=== PATIENT | female | born 1965 | race Caucasian/White ===

== ENCOUNTER → 2020-05-03 | Outpatient (CLI) | payer OTHER ==
[2020-05-03 15:18] VITALS: BP 130/86; PULSE 75; RESP 16; TEMP 98.2
--- NOTE | 2020-05-03 16:03 | P.HPOB ---
History of Present Illness H&P Date: 05/03/20 Chief Complaint: The patient is here for her routine gynecologic exam and ma mmogram. This is a 55-year-old with an LMP of 2012. She is here to establish with this office. She is status post endometrial ablation in 2012 and has been amenorrheic since then. She believes she went through a menopausal change in 2013 because of hot flashes. She has used Effexor for hot flashes. She is without gynecologic complaints and denies any postmenopausal bleeding. Review of Systems The patient has gained 30 pounds over the last year. She attributes this to decreased activity and increased distress during the covid pandemic. She denies respiratory, cardiac, or G.I. problems. Past Medical History Additional Past Medical History / Comment(s): Osteopenia. 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 History of Any Multi-Drug Resistant Organisms: None Reported Past Surgical History: Tonsillectomy, Uterine Ablation Additional Past Surgical History / Comment(s): Endometrial ablation 2012. Past Psychological History: Depression Additional Psychological History / Comment(s): Situational depression in the past. Smoking Status: Former smoker Past Alcohol Use History: Occasional (10 per week) Additional Past Alcohol Use History / Comment(s): Quit smoking around age 20. Past Drug Use History: None Reported Additional History: She has been since 1988. She is currently not working outside of the home. [place] - Past Family History Mother Family Medical History: Cancer Additional Family Medical History / Comment(s): Breast cancer at age 49 and at age 65. Grandparents had diabetes. Father Family Medical History: No Reported History Daughter(s) Family Medical History: Diabetes Mellitus Medications and Allergies Home Medications Medication Instructions Recorded Confirmed Type Venlafaxine HCl ER [Effexor XR] 75 mg PO DAILY 05/03/20 05/03/20 History Allergies Allergy/AdvReac Type Severity Reaction Status Date / Time No Known Allergies Allergy Unverified 05/03/20 15:18 Exam Vital Signs Temp Pulse Resp BP Pulse Ox 05/03/20 15:10 98.2 F 75 16 130/86 98 Intake and Output 05/03/20 05/03/20 05/03/20 06:59 14:59 22:59 Other: Weight 84.368 kg Height 5 feet 2 inches, weight 186 pounds, BMI 34.0. This is a well-developed well-nourished white female who is alert and oriented times 3 in no acute distress. HEENT: Within normal limits. NECK: Supple without mass or thyromegaly. CHEST AND LUNGS: Clear to auscultation. HEART: Regular rate and rhythm. BREASTS: Are without mass or discharge. AXILLARY EXAM: Negative for adenopathy. BACK: Negative for CVA tenderness. ABDOMEN: Soft, nontender, without palpable masses. PELVIC EXAM: Normal external genitalia with minimal atrophy. Cervix and vagina appear normal with minimal atrophy. There is no unusual discharge. There is no evidence of prolapse. The uterus is midposition, nongravid size and nontender. There are no palpable adnexal masses or tenderness. RECTAL EXAM: Rectovaginal exam is negative for mass or tenderness and is negative for occult blood. EXTREMITIES: Nontender. IMPRESSION: 1. 55-year-old menopausal female with normal gynecologic exam. 2. History of osteopenia. Bone density testing was [place] 2[place]3 [place] of state. PLAN: 1. Pap smear was performed. 2. Self breast awareness was discussed with the patient. 3. Screening mammogram will be done today. 4. Osteoporosis prevention was discussed. I have stressed the importance of adequate calcium, vitamin D and regular exercise. Recommended amounts of calcium and vitamin D were also discussed. She was once told she had some bone weakness in the jaw area and this led to her getting a bone density test which showed osteopenia. We will plan on repeating bone density testing in 1 year. 5. Weight control was discussed. I have stressed the importance of good nutrition, adequate fiber and regular exercise. 6. She was advised to return in one year for her annual well woman exam.
--- NOTE | 2020-05-04 11:43 | MM ---
Reason for exam: screening (asymptomatic). Last mammogram was performed 1 year and 4 months ago. History: Patient is postmenopausal. Family history of breast cancer in mother at age 49. Benign excisional biopsy of the right breast. Physical Findings: A clinical breast exam by your physician is recommended on an annual basis and results should be correlated with mammographic findings. MG 3D Screening Mammo W/Cad Bilateral CC and MLO view(s) were taken. Prior study comparison: December 18, 2018, mammogram, performed at [place]. December 12, 2017, mammogram, performed at [place]. There are scattered fibroglandular densities. No significant changes when compared with prior studies. ASSESSMENT: Benign, BI-RAD 2 RECOMMENDATION: Routine screening mammogram of both breasts in 1 year.
== END | disposition home or self-care (01) ==
LOC: WWCWWP 14:46
PROVIDERS: ATTEND Obstetrics & Gynecology
DX: Z12.31 Encounter for screening mammogram for malignant neoplasm of breast (principal)
CPT/HCPCS: 77063; 77067

== ENCOUNTER → 2021-05-02 | Outpatient (CLI) | payer OTHER ==
[2021-05-02 14:14] VITALS: BP 144/85; PULSE 88; RESP 18; TEMP 98.4
--- NOTE | 2021-05-02 14:49 | P.HPOB ---
History of Present Illness H&P Date: 05/02/21 Chief Complaint: The patient is here for her routine gynecologic exam. This is a 56-year-old with an LMP of 2012. The patient is without gynecologic complaints and denies any postmenopausal bleeding. Review of Systems The patient has gained 3 pounds over the last year. She denies respiratory, cardiac, or G.I. problems. Past Medical History Additional Past Medical History / Comment(s): Osteopenia. 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 History of Any Multi-Drug Resistant Organisms: None Reported Past Surgical History: Tonsillectomy, Uterine Ablation Additional Past Surgical History / Comment(s): Endometrial ablation 2012. Colonoscopy 2016(next after 10yr). Past Psychological History: Depression Additional Psychological History / Comment(s): Situational depression in the past. Smoking Status: Former smoker Past Alcohol Use History: Occasional (About 10 per week.) Additional Past Alcohol Use History / Comment(s): Quit smoking around age 20. Past Drug Use History: None Reported Additional History: She has been since 1988. She is currently not working outside the home. - Past Family History Mother Family Medical History: Cancer Additional Family Medical History / Comment(s): Breast cancer at age 49 and at age 65. Grandparents had diabetes. Father Family Medical History: No Reported History Daughter(s) Family Medical History: Diabetes Mellitus Medications and Allergies Home Medications Medication Instructions Recorded Confirmed Type Venlafaxine HCl ER [Effexor XR] 75 mg PO DAILY 05/03/20 05/02/21 History Amitriptyline HCl [Elavil] 25 mg PO HS 05/02/21 05/02/21 History Calcium Carbonate [Calcium] 1 tab PO DAILY 05/02/21 05/02/21 History Magnesium 200 mg PO DAILY 05/02/21 05/02/21 History Multivitamin/Iron/Folic Acid 1 each PO DAILY 05/02/21 05/02/21 History [Centrum Women Tablet] Potassium Chloride [Potassium 8 meq PO DAILY 05/02/21 05/02/21 History Chloride ER] Vitamin B Complex 1 each PO DAILY 05/02/21 05/02/21 History Allergies Allergy/AdvReac Type Severity Reaction Status Date / Time No Known Allergies Allergy Unverified 05/02/21 14:05 Exam Vital Signs Temp Pulse Resp BP Pulse Ox 05/02/21 14:08 98.4 F 88 18 144/85 97 Intake and Output 05/01/21 05/02/21 05/02/21 22:59 06:59 14:59 Other: Weight 85.729 kg Height 5 feet 1-1/2 inches, weight 189 pounds, BMI 35.1. This is a well-developed well-nourished white female who is alert and oriented times 3 in no acute distress. HEENT: Within normal limits. NECK: Supple without mass or thyromegaly. CHEST AND LUNGS: Clear to auscultation. HEART: Regular rate and rhythm. BREASTS: Are without mass or discharge. AXILLARY EXAM: Negative for adenopathy. BACK: Negative for CVA tenderness. ABDOMEN: Soft, nontender, without palpable masses. PELVIC EXAM: Normal external genitalia with mild atrophy. Cervix and vagina appear normal with minimal atrophy. There is no unusual discharge. There is no evidence of prolapse. The uterus is midposition, nongravid size and nontender. There are no palpable adnexal masses or tenderness. RECTAL EXAM: Rectovaginal exam is negative for mass or tenderness and is negative for occult blood. EXTREMITIES: Nontender. IMPRESSION: 1. 56-year-old menopausal female with normal gynecologic exam. 2. This Pap smear on 05/03/2020 showed ASCUS with negative high-risk HPV testing. 3. History of osteopenia by bone density testing done out of state about 3-4 y ears ago. PLAN: 1. Pap smear was deferred. Pap smear cotest will be performed in approximately 1-2 years. 2. Self breast awareness was discussed with the patient. We have also discussed symptoms associated with inflammatory breast cancer. 3. Screening mammogram is due and the order slip was given to the patient for this. She is scheduled for her mammogram on 05/19/2021. 4. Osteoporosis prevention was discussed. I have stressed the importance of adequate calcium, vitamin D and regular exercise. Recommended amounts of calcium and vitamin D were also discussed. She is scheduled for bone density test on 05/19/2021. The order slip for this was given to the patient. 5. She has received the IPTEGO and Oonair vaccination. 6. She was advised to return in one year for her annual well woman exam.
== END ==
LOC: WWCWWP 13:57
PROVIDERS: ATTEND Obstetrics & Gynecology
DX: Z01.419 Encounter for gynecological examination (general) (routine) without abnormal findings (principal); Z87.39 Personal history of other diseases of the musculoskeletal system and connective tissue; Z87.891 Personal history of nicotine dependence; F32.9 Major depressive disorder, single episode, unspecified

== ENCOUNTER → 2021-05-19 | Outpatient (CLI) | payer OTHER ==
--- NOTE | 2021-05-19 13:30 | BD ---
EXAMINATION TYPE: Axial Bone Density DATE OF EXAM: 05/19/2021 COMPARISON: NONE CLINICAL HISTORY: Height: 60.7 IN Weight: 185 LBS FRAX RISK QUESTIONS: History of Fracture in Adulthood: RT ANKLE FX AGE 51 RISK FACTORS HISTORY OF: Family History of Osteoporosis: YES GRANDMOTHER Active: YES Diet low in dairy products/other sources of calcium: YES Postmenopausal woman: AGE 48 MEDICATIONS: Additional Medications: CALCIUM, VIT D, VENIFLAXIN, AMYTRIPTYLINE, EXAM MEASUREMENTS: Bone mineral densitometry was performed using the [employer] System. Bone mineral density as measured about the Lumbar spine is: ----- L1-L4(G/cm2): 1.226 T Score Values are as follows: ----- L2: 0.8 ----- L3: 1.4 ----- L4: -0.3 ----- L1-L4: 0.4 Bone mineral density BASELINE Bone mineral density about the R hip (g/cm2): 0.844 Bone mineral density about the L hip (g/cm2): 0.871 T Score values are as follows: -----R Neck: -1.4 -----L Neck: -1.2 -----R Total: -0.7 -----L Total: -0.5 Bone mineral density BASELINE IMPRESSION: no evidence for osteoporosis or osteopenia NOTE: T-SCORE=SD OF THE YOUNG ADULT MEAN.
--- NOTE | 2021-05-22 11:55 | MM ---
Reason for exam: screening (asymptomatic). Last mammogram was performed 1 year and 1 month ago. History: Patient is postmenopausal. Family history of breast cancer in mother at age 49. Benign excisional biopsy of the right breast. Physical Findings: A clinical breast exam by your physician is recommended on an annual basis and results should be correlated with mammographic findings. MG 3D Screening Mammo W/Cad Bilateral CC and MLO view(s) were taken. Prior study comparison: May 03, 2020, bilateral MG 3d screening mammo w/cad. December 18, 2018, mammogram, performed at [place]. The breast tissue is heterogeneously dense. This may lower the sensitivity of mammography. There is no discrete abnormality. No significant changes when compared with prior studies. ASSESSMENT: Negative, BI-RAD 1 RECOMMENDATION: Routine screening mammogram of both breasts in 1 year.
--- NOTE | 2021-05-24 11:41 | P.PN ---
Progress Note - Text Progress Note Date: 05/24/21 OUTPATIENT FOLLOW-UP NOTE TEST(S)/RESULTS: Bone density test and mammogram done on 05/19/2021 were both read as normal. The bone density test shows the bilateral femur necks to be just outside of the normal range in the osteopenia range. This will be considered focal osteopenia. METHOD OF NOTIFICATION: The patient was notified by phone. PATIENT COMMENTS: The patient had a bone density test done [id number] a few years ago and apparently showed osteopenia per the patient. DIAGNOSIS: Focal osteopenia and benign mammogram. DISCUSSION: We have discussed how the Pap smear was not done this year. Last year which showed ASCUS with negative high-risk HPV testing. This will be repeated in 1-2 years from now. I have stressed the importance of getting adequate calcium, vitamin D, and regular exercise. PLAN: She was advised to return in one year for her annual well woman exam. We will plan on repeating the bone density test in 3 years.
== END | disposition home or self-care (01) ==
LOC: RADMAMWWP 11:22
PROVIDERS: ATTEND Obstetrics & Gynecology
DX: Z12.31 Encounter for screening mammogram for malignant neoplasm of breast (principal); Z78.0 Asymptomatic menopausal state
CPT/HCPCS: 77063; 77067; 77080

== ENCOUNTER → 2022-06-19 | Outpatient (CLI) | payer OTHER ==
[2022-06-19 13:00] VITALS: BP 151/92; PULSE 73; RESP 16; TEMP 98.7
--- NOTE | 2022-06-19 13:27 | P.HPOB ---
History of Present Illness H&P Date: 06/19/22 Chief Complaint: The patient is here for her routine gynecologic exam and ma mmogram. This is a 57-year-old with an LMP of 2012. The patient is without gynecologic complaints and denies any postmenopausal bleeding. Her last Pap smear done on 05/03/2020 showed ASCUS with negative high-risk HPV testing. Review of Systems The patient has lost 8 pounds over the last year. The weight loss has been intentional and she would like to lose more weight. She denies respiratory, cardiac, or G.I. problems. 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 History of Any Multi-Drug Resistant Organisms: None Reported Past Surgical History: Tonsillectomy, Uterine Ablation Additional Past Surgical History / Comment(s): Endometrial ablation 2012. Colonoscopy 2016(next after 10yr). Past Psychological History: Depression Additional Psychological History / Comment(s): Situational depression in the past. Smoking Status: Former smoker Past Alcohol Use History: Daily (About 2 glasses of wine per day.) Additional Past Alcohol Use History / Comment(s): Quit smoking around age 20. Past Drug Use History: None Reported Additional Drug Use History / Comment(s): She does use THC gummy is to help her sleep. Additional History: She has been since 1988. She sells real estate. - Past Family History Mother Family Medical History: Cancer Additional Family Medical History / Comment(s): Breast cancer at age 49 and at age 65. Grandparents had diabetes. Father Family Medical History: No Reported History Daughter(s) Family Medical History: Diabetes Mellitus Medications and Allergies Home Medications Medication Instructions Recorded Confirmed Type Venlafaxine HCl ER [Effexor XR] 75 mg PO DAILY 05/03/20 05/02/21 History Amitriptyline HCl [Elavil] 25 mg PO HS 05/02/21 05/02/21 History Calcium Carbonate [Calcium] 1 tab PO DAILY 05/02/21 05/02/21 History Magnesium 200 mg PO DAILY 05/02/21 05/02/21 History Multivitamin/Iron/Folic Acid 1 each PO DAILY 05/02/21 05/02/21 History [Centrum Women Tablet] Potassium Chloride [Potassium 8 meq PO DAILY 05/02/21 05/02/21 History Chloride ER] Vitamin B Complex 1 each PO DAILY 05/02/21 05/02/21 History Allergies Allergy/AdvReac Type Severity Reaction Status Date / Time No Known Allergies Allergy Unverified 05/02/21 14:05 Exam Vital Signs Temp Pulse Resp BP Pulse Ox 06/19/22 12:58 98.7 F 73 16 151/92 99 Intake and Output 06/18/22 06/19/22 06/19/22 22:59 06:59 14:59 Other: Weight 82.1 kg Height 5 foot 1.5 inch, weight 181 pounds, BMI 34.2. This is a well-developed well-nourished white female who is alert and oriented times 3 in no acute distress. HEENT: Within normal limits. NECK: Supple without mass or thyromegaly. CHEST AND LUNGS: Clear to auscultation. HEART: Regular rate and rhythm. BREASTS: Are without mass or discharge. AXILLARY EXAM: Negative for adenopathy. BACK: Negative for CVA tenderness. ABDOMEN: Soft, nontender, without palpable masses. PELVIC EXAM: Normal external genitalia with mild atrophy. Cervix and vagina appear normal with mild atrophy. There is no unusual discharge. There is no evidence of prolapse. The uterus is midposition, nongravid size and nontender. There are no palpable adnexal masses or tenderness. RECTAL EXAM: Rectovaginal exam is negative for mass or tenderness and is negative for occult blood. EXTREMITIES: Nontender. IMPRESSION: 1. 57-year-old menopausal female with normal gynecologic exam. 2. Previous Pap smear showed ASCUS with negative high-risk HPV testing on 05/03/2020. 3. History of focal osteopenia on 05/19/2021. PLAN: 1. Pap smear cotest was performed. 2. Self breast awareness was discussed with the patient. We have also discussed symptoms associated with inflammatory breast cancer. 3. Screening mammogram will be done today. 4. Osteoporosis prevention was discussed. I have stressed the importance of adequate calcium, vitamin D and regular exercise. Recommended amounts of calcium and vitamin D were also discussed. We will plan on repeating bone density testing in approximately 2 years. 5. She has received Covid vaccinations including two boosters. 6. She was advised to return in one year for her annual well woman exam.
--- NOTE | 2022-06-20 08:57 | MM ---
Reason for Exam: Screening (asymptomatic). Last mammogram was performed 1 year(s) and 1 month(s) ago. Patient History: Menarche at age 12. First Full-Term at age 21. Postmenopausal. Patient has history of breast feeding. Benign Excisional Biopsy on the right side. Mother had breast cancer, age 49. Risk Values: Neda 5 year model risk: 3.0%. NCI Lifetime model risk: 16.6%. Prior Study Comparison: 12/12/2017 Screening Mammogram, [place]. 12/18/2018 Screening Mammogram, [place]. 05/03/2020 Bilateral Screening Mammogram, [facility]. 05/19/2021 Bilateral Screening Mammogram, [facility]. Tissue Density: There are scattered fibroglandular densities. Findings: Analyzed By CAD. Left breast biopsy clip. There is no suspicious group of microcalcifications or new suspicious mass in either breast. Overall Assessment: Negative, BI-RAD 1 Management: Screening Mammogram of both breasts in 1 year. A clinical breast exam by your physician is recommended on an annual basis and results should be correlated with mammographic findings. [facility] will attempt to contact patient to return for supplemental views and ultrasound if indicated. Electronically signed and approved by: Claudy Galicia DO
== END ==
LOC: WWCWWP 12:47
PROVIDERS: ATTEND Obstetrics & Gynecology
DX: Z01.419 Encounter for gynecological examination (general) (routine) without abnormal findings (principal); Z12.31 Encounter for screening mammogram for malignant neoplasm of breast; Z78.0 Asymptomatic menopausal state; Z87.39 Personal history of other diseases of the musculoskeletal system and connective tissue
CPT/HCPCS: 77063; 77067

== ENCOUNTER → 2023-05-29 | Outpatient (CLI) | payer OTHER ==
--- NOTE | 2023-05-29 08:39 | US ---
EXAMINATION TYPE: US pelvis complete transvag DATE OF EXAM: 05/29/2023 COMPARISON: NONE CLINICAL INDICATION: Female, 58 years old with history of D25.9 LEIOMYOMA OF UTERUS; pain TECHNIQUE: Transvaginal (TV) and Transabdominal (TA) . EXAM MEASUREMENTS: Uterus: 8.2 x 4.0 x 5.0 cm Endometrial Stripe: not well visualized 1. Uterus: Retroverted Heterogenous area left 3.1 x 2.4 x 2.9 cm 2. Endometrium: Not well visualized 3. Right Ovary: Obscured by overlying bowel gas 4. Left Ovary: Obscured by overlying bowel gas 5. Bilateral Adnexa: wnl 6. Posterior cul-de-sac: wnl IMPRESSION: 1. No evidence for acute process. 2. Fibroid uterus. 3. Poor visualization of the endometrium.
== END | disposition home or self-care (01) ==
LOC: RADUSWWP 07:06
PROVIDERS: ATTEND Family Medicine
DX: D25.9 Leiomyoma of uterus, unspecified (principal)
CPT/HCPCS: 76830; 76856

== ENCOUNTER → 2023-08-14 | Day surgery (SDC) | payer OTHER ==
[2023-08-12 10:01] VITALS: BMI 31.1
[~2023-08-14] MED LIST: LACTATED RINGERS 1,000 ML IV SCH; LIDOCAINE 1% (10MG/ML) FOR IV START INTRADERMA ONE; PROPOFOL 10 MG/ML 20 ML VIAL IV ONE
[2023-08-14 11:23] VITALS: TEMP 97.9
--- NOTE | 2023-08-14 12:18 | P.PCN ---
Date of Procedure: 08/14/23 Procedure(s) Performed: BRIEF HISTORY: Patient is a 58-year-old pleasant female scheduled for an elective colonoscopy as a part of evaluation of change in bowel habits and intermittent lower abdominal pain abdominal distention for the last 6 months duration. PROCEDURE PERFORMED: Colonoscopy with biopsy. PREOPERATIVE DIAGNOSIS: Lower abdominal pain, change in bowel habits and abdominal distention. IV sedation per Anesthesia. PROCEDURE: After informed consent was obtained, the patient, was brought into the endoscopy unit. IV sedation was administered by Anesthesia under continuous monitoring. Digital rectal examination was normal. Initially the Olympus CF-160 flexible video colonoscope was then inserted in the rectum, gradually advanced into the cecum without any difficulty. Careful examination was performed as the scope was gradually being withdrawn. Ileocecal valve and the appendiceal orifice were visualized and appeared normal. Prep was excellent. Mucosa of the cecum, ascending colon, appeared normal. The transverse colon there was a 4 mm sessile polyp by cold biopsy. Rest of the transverse colon, descending colon, sigmoid colon, and rectum appeared normal. Scattered sigmoid diverticulosis. Retroflexion was performed in the rectum and no lesions were seen. The patient tolerated the procedure well. IMPRESSION: 4 mm transverse colon polyp status post cold biopsy Scattered sigmoid diverticulosis Rest of the colon appeared normal RECOMMENDATIONS: Findings of this examination were discussed with the patient as well as a family. She was advised to follow with the biopsy results. If the biopsy reveals adenoma and colonoscopy in 5 years.
[2023-08-14 12:58] VITALS: BP 145/91; PULSE 71; RESP 16
== END ==
LOC: ORWHC2ENDO 10:40
PROVIDERS: ATTEND Internal Medicine Gastroenterology
DX: D12.3 Benign neoplasm of transverse colon (principal); K57.30 Diverticulosis of large intestine without perforation or abscess without bleeding; R19.4 Change in bowel habit; I10 Essential (primary) hypertension; F32.A Depression, unspecified; M85.80 Other specified disorders of bone density and structure, unspecified site; Z79.899 Other long term (current) drug therapy
CPT/HCPCS: 88305; 45380; J2704

== ENCOUNTER → 2023-10-31 | Outpatient (CLI) | payer OTHER ==
--- NOTE | 2023-10-31 14:32 | MM ---
Reason for Exam: Screening (asymptomatic). Last mammogram was performed 1 year(s) and 5 month(s) ago. Patient History: Menarche at age 12. First Full-Term at age 21. Postmenopausal. Patient has history of breast feeding. Benign Excisional Biopsy on the right side. Mother had breast cancer, age 49. Risk Values: Neda 5 year model risk: 3.1%. NCI Lifetime model risk: 16.2%. Prior Study Comparison: 05/03/2020 Bilateral Screening Mammogram, [facility]. 05/19/2021 Bilateral Screening Mammogram, [facility]. 06/19/2022 Bilateral MG 3D screening mammo w/cad, [facility]. Tissue Density: There are scattered areas of fibroglandular density. Findings: Analyzed By CAD. Right breast biopsy clip. Right breast: There is no suspicious group of microcalcifications or new suspicious mass. Left breast: There is no suspicious group of microcalcifications or new suspicious mass. Overall Assessment: Negative, BI-RAD 1 Management: Screening Mammogram of both breasts in [address] [facility] will attempt to contact patient to return for supplemental views and ultrasound if indicated. Patient should continue monthly self-breast exams. A clinical breast exam by your physician is recommended on an annual basis. This exam should not preclude additional follow-up of suspicious palpable abnormalities. Note on Neda scores and lifetime risk: 1. A Neda score greater than 3% is considered moderate risk. If this is the case, consider specialist referral to assess eligibility for a risk reducing agent. 2. If overall lifetime risk for the development of breast cancer is 20% or higher, the patient may qualify for future screening with alternating mammogram and breast MRI. Electronically signed and approved by: Claudy Galicia DO
== END | disposition home or self-care (01) ==
LOC: RADMAMWWP 13:26
PROVIDERS: ATTEND Family Medicine
DX: Z12.31 Encounter for screening mammogram for malignant neoplasm of breast (principal); Z78.0 Asymptomatic menopausal state; Z80.3 Family history of malignant neoplasm of breast
CPT/HCPCS: 77063; 77067

== ENCOUNTER → 2024-12-07 | Outpatient (CLI) | payer BC ==
--- NOTE | 2024-12-07 11:35 | MM ---
Reason for Exam: Screening (asymptomatic). Last mammogram was performed 1 year(s) and 1 month(s) ago. Patient History: Menarche at age 12. First Full-Term at age 21. Postmenopausal. Patient has history of breast feeding. Benign Excisional Biopsy on the right side. Mother had breast cancer, age 49. Risk Values: Neda 5 year model risk: 3.2%. NCI Lifetime model risk: 15.8%. Prior Study Comparison: 05/19/2021 Bilateral Screening Mammogram, [facility]. 06/19/2022 Bilateral MG 3D screening mammo w/cad, [place]. 10/31/2023 Bilateral MG 3D screening mammo w/cad, [facility]. Tissue Density: The breasts are heterogeneously dense, which may obscure small masses. Findings: Analyzed By CAD. Mammotome biopsy clip in the right breast is redemonstrated. Benign-appearing bilateral axillary lymph nodes are again seen. There is no suspicious group of microcalcifications or new suspicious mass in either breast. Overall Assessment: Benign, BI-RAD 2 Management: Screening Mammogram of both breasts in 1 year. . Patient should continue monthly self-breast exams. A clinical breast exam by your physician is recommended on an annual basis. This exam should not preclude additional follow-up of suspicious palpable abnormalities. Note on Neda scores and lifetime risk: 1. A Neda score greater than 3% is considered moderate risk. If this is the case, consider specialist referral to assess eligibility for a risk reducing agent. 2. If overall lifetime risk for the development of breast cancer is 20% or higher, the patient may qualify for future screening with alternating mammogram and breast MRI. [facility], , 12/07/2024 11:32 AM. Electronically signed and approved by: Sonny Gil M.D.
== END | disposition home or self-care (01) ==
LOC: RADMAMWWP 11:01
PROVIDERS: ATTEND Family Medicine
DX: Z12.31 Encounter for screening mammogram for malignant neoplasm of breast (principal); R92.333 Mammographic heterogeneous density, bilateral breasts; Z78.0 Asymptomatic menopausal state; Z80.3 Family history of malignant neoplasm of breast
CPT/HCPCS: 77063; 77067